=== PATIENT | male | born 1950 | race Caucasian/White ===

== ENCOUNTER 2016-06-05 13:50 | Emergency (ER) | payer OTHER ==
--- NOTE | 2016-06-05 14:02 | CPEKG ---
Heart Rate: 83 RR Interval: 723 P-R Interval: 156 QRSD Interval: 86 QT Interval: 392 QTC Interval: 461 P [place]: 36 QRS [place]: 68 T Wave [place]: 26 EKG Severity - NORMAL ECG - EKG Impression: SINUS RHYTHM Electronically Signed By: Swati Diaz 05-Jun-2016 21:24:24
[2016-06-05 14:22] LABS: % IMMATURE GRANULYOCYTES 0.9 % (0.0-1.1); ABSOLUTE IMMATURE GRANULOCYTES 0.12 10^3/uL (0.00-0.10); ADD DIFF? NO; ADD MORPH? NO; ADD SCAN? NO; ATYPICAL LYMPHOCYTE FLAG 10 (0-99); FRAGMENT RBC FLAG 0 (0-99); HEMATOCRIT 44.4 % (40.0-51.0); LEFT SHIFT FLG 0 (0-99); LIPEMIA HEMOLYSIS FLAG 90 (0-99); MEAN CELL HEMOGLOBIN 31.3 pg (27.9-34.1); MEAN CELL HEMOGLOBIN CONCENTR. 33.8 g/dL (32.4-36.7); MEAN CELL VOLUME 92.7 fL (81.5-99.8); MEAN PLATELET VOLUME 9.3 fL (8.7-11.7); PLATELET CLUMPS FLAG 0 (0-99); PLATELET COUNT 428 10^3/uL (150-400); RED BLOOD CELL COUNT 4.79 10^6/uL (4.40-6.38); RED CELL DISTRIBUTION WIDTH 12.5 % (11.5-15.2)
[2016-06-05 14:31] LABS: ANION GAP 13 mEq/L (8-16); CARBON DIOXIDE 24 mEq/l (22-31); CHLORIDE 104 mEq/L (97-110); CREATININE 1.4 mg/dL (0.7-1.3); GLOMERULAR FILTRATION RATE 51; GLUCOSE 117 mg/dL (70-100); POTASSIUM 4.7 mEq/L (3.5-5.2); SODIUM 141 mEq/L (134-144)
[2016-06-05 14:43] LABS: TROPONIN I < 0.012 ng/mL (0-0.034)
--- NOTE | 2016-06-05 14:55 | CT ---
CT Head (Without Contrast) 1438 hours Indication: Trauma. Syncope. Comparison: None Technique: Standard noncontrast head CT protocol utilizing 5-mm thick collimated slices and field of view of 23 cm. Dose reduction techniques were utilized. Findings: No intracranial hemorrhage, mass lesion, swelling, or extraaxial fluid collection. 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 The ventricles are normal caliber and midline. The vera and white matter has normal attenuation. No evidence of ischemia. The bones are unremarkable. The paranasal sinuses are clear. Impression: 1. No acute intracranial hemorrhage, mass, or evidence of ischemia. 2. No fracture. Comment: Case was discussed with Syed Mary PA-C, at 245 p.m. on June 05, 2016.
[2016-06-05] MEDS ORDERED: NS 1,000 ML IV ONE (15:00)
--- NOTE | 2016-06-05 15:01 | EDPHY ---
H & P Stated Complaint: syncopal episode at the gym. L forehead abrasion Time Seen by Provider: 06/05/16 14:17 HPI/ROS: Chief complaint: Syncope History of present illness: This is a 66-year-old male who presents to the emergency department with EMS after sustaining a syncopal episode. Patient was exercising at a gym, he then went to the sauna. Upon getting out of the sauna he went to go shower when he apparently had a syncopal episode. He denies any preceding events. He states he woke up on the floor with people around him. He reports mild discomfort in his head where he hit it on the ground. He denies other associated signs or symptoms including no fevers, no cold symptoms , no chest pain, no shortness of breath, no paresthesias, no weakness or paralysis and no bowel or bladder dysfunction. No seizure activity reported. Review of systems: A 10 point review of systems was obtained and other than described above was negative - Personal History Current Tetanus/Diphtheria Vaccine: Yes Current Tetanus Diphtheria and Acellular Pertussis (TDAP): Yes - Medical/Surgical History Hx Asthma: No Hx Chronic Respiratory Disease: No Hx Diabetes: No Hx Cardiac Disease: Yes Hx Renal Disease: No Hx Cirrhosis: No Hx HIV/AIDS: No Hx Splenectomy or Spleen Trauma: No Other PMH: pmh- htn, gout, chronic back pain. psh- neck/back - Social History Smoking Status: Current every day smoker - Physical Exam Exam: General Appearance: Alert, nontoxic. Eyes: Pupils equal and round no pallor or injection. ENT, Mouth: Mucous membranes moist. Respiratory: There are no retractions, lungs are clear to auscultation. Cardiovascular: Regular rate and rhythm. Gastrointestinal: Abdomen is soft and non tender, no masses, bowel sounds normal. Neurological: Alert and oriented x4. Cranial nerves 2-12 grossly intact. Strength and sensation intact and symmetrical. He is ambulating without difficulty. Skin: Warm and dry, no rashes. Contusion to the left forehead. Musculoskeletal: Tenderness to the left forehead. The rest of the head is nontender. The spine is nontender to palpation along its entire length. There is no crepitus, bony deformity or step-off. Chest wall intact palpation. Patient moving all extremities without difficulty. Psychiatric: Patient is oriented X 3, there is no agitation. Constitutional: Initial Vital Signs Temperature (C) 36.4 C 06/05/16 13:50 Heart Rate 87 06/05/16 13:50 Respiratory Rate 14 06/05/16 13:50 Blood Pressure 127/70 H 06/05/16 13:50 O2 Sat (%) 98 06/05/16 13:50 O2 Delivery Mode Room Air O2 (L/minute) 1 Allergies/Adverse Reactions: No Known Allergies Allergy (Unverified 06/05/16 13:56) Home Medications: Medication Instructions Recorded Med For Gout 06/05/16 Vicodin 5-300 mg Tablet 06/05/16 Medical Decision Making - Diagnostics Imaging: CT scan of the head is negative for acute injury ED Course/Re-evaluation: Patient discussed with my primary supervising physician Dr. Swati Diaz. Patient presents to the emergency department by EMS after sustaining a syncopal episode. On presentation he is nontoxic. Afebrile and vital signs are stable. Contusion of forehead noted on physical exam otherwise physical exam is unremarkable including a nonfocal neurologic exam. Blood studies do show a mildly elevated creatinine. He has been IV hydrated. EKG is unremarkable. CT scan is unremarkable. I have offered him admission to the hospital for further evaluation and care. He has declined. He will be discharged home. Home care is discussed. He is asked to follow up with his primary care doctor this week for recheck. He does report he has a primary care doctor. Strict return precautions are given. Patient voiced understanding and agreement with plan. Differential Diagnosis: Included but not limited to volume depletion, vasovagal, electrolyte disturbances, anemia, cardiac disturbances, intracranial pathology - Data Points Laboratory Results: Laboratory Results 06/05/16 13:51 06/05/16 13:51 06/05/16 13:51 WBC 12.83 H 10^3/uL (3.80-9.50) RBC 4.79 10^6/uL (4.40-6.38) Hgb 15.0 g/dL (13.7-17.5) Hct 44.4 % (40.0-51.0) MCV 92.7 fL (81.5-99.8) MCH 31.3 pg (27.9-34.1) MCHC 33.8 g/dL (32.4-36.7) RDW 12.5 % (11.5-15.2) Plt Count 428 H 10^3/uL (150-400) MPV 9.3 fL (8.7-11.7) Neut % (Auto) 43.3 % (39.3-74.2) Lymph % (Auto) 45.8 H % (15.0-45.0) Meagher % (Auto) 7.3 % (4.5-13.0) Eos % (Auto) 1.9 % (0.6-7.6) Baso % (Auto) 0.8 % (0.3-1.7) Nucleat RBC Rel Count 0.0 % (0.0-0.2) Absolute Neuts (auto) 5.55 10^3/uL (1.70-6.50) Absolute Lymphs (auto) 5.88 H 10^3/uL (1.00-3.00) Absolute Monos (auto) 0.94 H 10^3/uL (0.30-0.80) Absolute Eos (auto) 0.24 10^3/uL (0.03-0.40) Absolute Basos (auto) 0.10 10^3/uL (0.02-0.10) Absolute Nucleated RBC 0.00 10^3/uL (0-0.01) Immature Gran % 0.9 % (0.0-1.1) Immature Gran # 0.12 H 10^3/uL (0.00-0.10) Sodium 141 mEq/L (134-144) Potassium 4.7 mEq/L (3.5-5.2) Chloride 104 mEq/L (97-110) Carbon Dioxide 24 mEq/l (22-31) Anion Gap 13 mEq/L (8-16) BUN 15 mg/dL (7-23) Creatinine 1.4 H mg/dL (0.7-1.3) Estimated GFR 51 Glucose 117 H mg/dL (70-100) Calcium 10.0 mg/dL (8.5-10.4) Troponin I < 0.012 ng/mL (0-0.034) Medications Given: Discontinued Medications Sodium Chloride (Ns) 1,000 mls @ 0 mls/hr IV ONCE ONE PRN Reason: Wide Open Stop: 06/05/16 15:01 Last Admin: 06/05/16 15:00 Dose: 1,000 mls Departure - Departure Disposition: Home, Routine, Self-Care Clinical Impression: Syncope Qualifiers: Syncope type: unspecified Qualifier Code: (R55) Syncope and collapse Contusion Qualifiers: Encounter type: initial encounter Contusion area: head Contusion of head detail : other part of head Qualifier Code: (S00.83XA) Contusion of other part of head , initial encounter Condition: Good Instructions: Syncope (ED) Additional Instructions: Follow-up with your primary care doctor this week for recheck. Please have your primary care doctor recheck your creatinine as it was elevated Drink plenty of fluids to stay hydrated and get plenty of rest. If symptoms worsen or new symptoms develop return to the emergency department for recheck Referrals: NONE *PRIMARY CARE P,. [Primary Care Provider] - As per Instructions
[2016-06-05 16:07] VITALS: BP 110/70; PULSE 85; RESP 16; TEMP 98.2; O2SAT 96
== END 2016-06-05 16:21 | disposition home or self-care (01) ==
LOC: EDUNIT#
DX: R55 Syncope and collapse (principal); S00.83XA Contusion of other part of head, initial encounter; I10 Essential (primary) hypertension; F17.200 Nicotine dependence, unspecified, uncomplicated; W22.8XXA Striking against or struck by other objects, initial encounter; Y92.89 Other specified places as the place of occurrence of the external cause; Y93.89 Activity, other specified